=== PATIENT | female | born 1965 | race African-American/Black ===

== ENCOUNTER → 2016-10-16 | Outpatient (CLI) | payer OTHER ==
[~2016-10-16] MED LIST: ALEV220T26 PO; ASPI81TA85 PO; BACL10TA2 PO; INSULADS SC; INVO300T PO; LIPI10TA PO; LISI-542 PO; ZOFR20TA PO
--- NOTE | 2016-10-16 12:59 | REPMRS ---
Patient History The patient states she has not had a clinical breast exam in over a year. No known family history of cancer. Benign radio exam breast specimen of the right breast, October 08, 2015. Benign stereotatic loc for ea lesion of the left breast, October 08, 2015. Took hormonal contraceptives. Digital Mammo Screening Bilat: October 16, 2016 - Exam #: [id number] Bilateral CC and MLO view(s) were taken. Technologist: Justina Chambers, Technologist Prior study comparison: September 11, 2015, left breast digital mammo diagnostic unilateral performed at [facility]. September 03, 2015, digital bilateral screening mammo, performed at [facility]. FINDINGS: The breast tissue is heterogeneously dense. This may lower the sensitivity of mammography. There has been no change in the appearance of the mammogram from the prior studies. There is a moderate amount of residual fibroglandular tissue which is fairly symmetric. There is no interval development of dominant mass, areas of architectural distortion, or clustered microcalcification typical of malignancy. ASSESSMENT: BI-RADS/ACR category 1 mammogram. Negative. Recommendation Routine screening mammogram in 1 year (for women over age 40). This mammogram was interpreted with the aid of an FDA-approved computer-aided dectection system. Electronically Signed By: Justin Ramirez MD 10/16/16 1675
== END ==
LOC: M RAD 11:59
PROVIDERS: ATTEND Family Medicine
DX: Z12.31 Encounter for screening mammogram for malignant neoplasm of breast (principal)

== ENCOUNTER → 2017-05-11 | Outpatient (REF) | payer OTHER ==
[2017-05-11 12:56] LABS: ALBUMIN 3.8 GM/DL (3.2-5.2); ALBUMIN/GLOBULIN RATIO 1.06 (1.00-1.93); ALKALINE PHOSPHATASE 95 U/L (45-117); ALT/SGPT 21 U/L (12-78); ANION GAP 11 MEQ/L (8-16); AST/SGOT 15 U/L (7-37); BILIRUBIN,TOTAL 0.6 MG/DL (0.2-1.0); BLOOD UREA NITROGEN 12 MG/DL (7-18); CARBON DIOXIDE LEVEL 26 MEQ/L (21-32); CHLORIDE LEVEL 107 MEQ/L (98-107); CHOLESTEROL LEVEL 145 MG/DL (<200); CHOLESTEROL RISK RATIO 3.085 (<5); CREATININE FOR GFR 0.77 MG/DL (0.55-1.30); GLOMERULAR FILTRATION RATE > 60.0 (>51); GLUCOSE, FASTING 107 MG/DL (70-100); HDL CHOLESTEROL 47 MG/DL (>40); LDL CHOLESTEROL 83.6 MG/DL (<100); NON-HDL-C 98 MG/DL; POTASSIUM SERUM 4.2 MEQ/L (3.5-5.1); SODIUM LEVEL 144 MEQ/L (136-145); TOTAL PROTEIN 7.4 GM/DL (6.4-8.2); TRIGLYCERIDES LEVEL 72 MG/DL (<150)
[2017-05-11 13:08] LABS: CREATININE, URINE 93.8 MG/DL; CREATININE,RANDOM URINE 93.8 MG/DL; MALB URINE SIEMENS 10.1 MG/L; MAU/CREAT RATIO 10.7 MCG/MG (0.0-30.0)
== END ==
LOC: M LABDRAW1 10:46
DX: E11.9 Type 2 diabetes mellitus without complications (principal); E04.0 Nontoxic diffuse goiter

== ENCOUNTER → 2017-11-02 | Outpatient (CLI) | payer OTHER | LOC: M RAD 09:28 | DX: Z12.31 Encounter for screening mammogram for malignant neoplasm of breast (principal) ==

== ENCOUNTER → 2018-08-29 | Outpatient (REF) | payer OTHER ==
[~2018-08-29] MED LIST changes: -ZOFR20TA PO; +ZOFR4TAB16 PO
[2018-08-29 16:58] LABS: BLOOD UREA NITROGEN 23 MG/DL (7-18); CARBON DIOXIDE LEVEL 26 MEQ/L (21-32); CHLORIDE LEVEL 106 MEQ/L (98-107); CHOLESTEROL LEVEL 172 MG/DL (<200); CHOLESTEROL RISK RATIO 3.307 (<5); CREATININE FOR GFR 0.96 MG/DL (0.55-1.30); GLOMERULAR FILTRATION RATE > 60.0 (>51); GLUCOSE, FASTING 154 MG/DL (70-100); HDL CHOLESTEROL 52 MG/DL (>40); LDL CHOLESTEROL 100 MG/DL (<100); NON-HDL-C 120 MG/DL; SODIUM LEVEL 141 MEQ/L (136-145); TRIGLYCERIDES LEVEL 99 MG/DL (<150)
[2018-08-29 17:13] LABS: CREATININE, URINE 70.3 MG/DL; MALB URINE SIEMENS 9.9 MG/L
== END ==
LOC: M LABDRAW1 15:26
PROVIDERS: ATTEND Nurse Practitioner Family
DX: E11.9 Type 2 diabetes mellitus without complications (principal); E78.00 Pure hypercholesterolemia, unspecified; E04.0 Nontoxic diffuse goiter

== ENCOUNTER → 2018-11-04 | Outpatient (CLI) | payer OTHER ==
--- NOTE | 2018-11-04 11:46 | REPMRS ---
Patient History The patient states she has not had a clinical breast exam in over a year. No known family history of cancer. Benign radio exam breast specimen of the right breast, October 08, 2015. Benign stereotatic loc for ea lesion of the left breast, October 08, 2015. Took hormonal contraceptives. Digital Mammo Screening Bilat: November 04, 2018 - Exam #: [id number] Bilateral CC and MLO view(s) were taken. Technologist: Annabelle Rocha, Technologist Prior study comparison: November 02, 2017, bilateral digital mammo screening bilat performed at [facility]. October 16, 2016, bilateral digital mammo screening bilat performed at [facility]. September 03, 2015, digital bilateral screening mammo, performed at [facility]. FINDINGS: There are scattered fibroglandular densities. There is a needle biopsy marker clip again noted in the upper outer quadrant on the left. There has been no change in the appearance of the mammogram from the prior studies. There is a mild amount of scattered fibroglandular density which is fairly symmetric. There is no interval development of dominant mass, architectural distortion, or grouped microcalcification suggestive of malignancy. Assessment: BI-RADS/ACR category 2 mammogram. Benign Findings. Recommendation Routine screening mammogram of both breasts in 1 year (for women over age 40). This patient's Lifetime Breast Cancer Risk is estimated at 9.7 %. This mammogram was interpreted with the aid of an FDA-approved computer-aided dectection system. Electronically Signed By: Jarred Montiel MD 11/04/18 [id number]
== END ==
LOC: M RAD 10:20
PROVIDERS: ATTEND Family Medicine
DX: Z12.31 Encounter for screening mammogram for malignant neoplasm of breast (principal)

== ENCOUNTER 2019-02-27 01:21 | Emergency (ER) | payer OTHER ==
[~2019-02-27] VITALS: Ht 170.2 cm; Wt 72.3 kg
[2019-02-27] MEDS ORDERED: DEXTROMETHORPHAN 60MG/10ML SUSP 90ML BTL(DELSYM) PO PRN (02:00)
[2019-02-27] MEDS ORDERED: NS 1,000 ML IV ONE (02:00)
[2019-02-27] MEDS ORDERED: MORPHINE 2 MG/ML 1ML VIAL (J2270) IV ONE (02:00)
[2019-02-27 02:47] LABS: INFLUENZA A AMPLIFICATION NEGATIVE (NEGATIVE); INFLUENZA B AMPLIFICATION NEGATIVE (NEGATIVE)
[2019-02-27 03:15] LABS: HEMATOCRIT 44.5 % (36.0-47.0); HEMOGLOBIN 13.9 g/dl (12.0-15.5); MEAN CORPUSCULAR HEMOGLOBIN 25.5 pg (27.0-33.0); MEAN CORPUSCULAR HGB CONC 31.2 g/dl (32.0-36.5); MEAN CORPUSCULAR VOLUME 81.7 fl (80.0-96.0); PLATELET COUNT, AUTOMATED 297 10^3/uL (150-450); RED BLOOD COUNT 5.45 10^6/uL (4.00-5.40); WHITE BLOOD COUNT 12.5 10^3/uL (4.0-10.0)
[2019-02-27 03:28] LABS: BLOOD UREA NITROGEN 16 MG/DL (7-18); CALCIUM LEVEL 8.9 MG/DL (8.5-10.1); CARBON DIOXIDE LEVEL 24 MEQ/L (21-32); CHLORIDE LEVEL 109 MEQ/L (98-107); CK-MB VALUE MASS 2.3 NG/ML (<3.6); CPK CREATINE PHOSPHOKINASE 226 U/L (26-192); CREATININE FOR GFR 1.24 MG/DL (0.55-1.30); GLOMERULAR FILTRATION RATE 58.8 (>51); GLUCOSE, FASTING 182 MG/DL (70-100); MB/CK RELATIVE INDEX 1.02 (< OR =4); SODIUM LEVEL 143 MEQ/L (136-145); TROPONIN I < 0.02 NG/ML (< 0.10)
[2019-02-27] MEDS ORDERED: NS 500 ML IV ONE (03:45)
[2019-02-27] MEDS ORDERED: ISOVUE-370 76% 100ML VIAL (Q9967) As Ordered ONE (04:18)
--- NOTE | 2019-02-27 04:59 | REPVR ---
PROCEDURE INFORMATION: Exam: CT Angiography Chest With Contrast Exam date and time: 02/27/2019 4:24 AM Age: 53 years old Clinical history: Chest pain. TECHNIQUE: Imaging protocol: Computed tomographic angiography of the chest with intravenous contrast. 3D rendering: MIP reconstructed images were created and reviewed. Radiation optimization: All CT scans at this facility use at least one of these dose optimization techniques: automated exposure control; mA and/or kV adjustment per patient size (includes targeted exams where dose is matched to clinical indication); or iterative reconstruction. Contrast material: ISOVUE 370; Contrast volume: 75 ml; Contrast route: IV; COMPARISON: CR PORTABLE CHEST X-RAY 02/27/2019 1:52 AM FINDINGS: Pulmonary arteries: No pulmonary embolism is identified. 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 The brachiocephalic artery, imaged proximal portion of the left common carotid artery, and left subclavian artery are patent. Aorta: There is no thoracic aortic aneurysm, pseudoaneurysm, intramural hematoma, penetrating atherosclerotic ulcer, or dissection. There are mild atherosclerotic calcifications. Thyroid: There is a punctate calcification in the left lobe of the thyroid gland. The thyroid gland was not fully imaged. Lungs: There is mild atelectasis in the right middle lobe, right lower lobe, and lingula. The lungs are otherwise clear. There is no lung consolidation, pulmonary infarct, or mass. No emphysematous changes or interstitial lung disease is noted. The major airways are patent. Pleural space: Unremarkable. No pneumothorax. No pleural effusion. Heart: No cardiomegaly. There is a trace amount of fluid in the pericardial sac. The ratio of the diameter of the right ventricle to the diameter of the left ventricle measures less than 1, which is within normal limits and there is no evidence for a right ventricular strain. Mediastinum: No mediastinal hemorrhage or pneumomediastinum is noted. There is fluid in the esophagus, which can be seen with gastroesophageal reflux. Gallbladder: There has been a cholecystectomy and there are surgical clips in gallbladder fossa. Lymph nodes: Normal. No enlarged lymph nodes. Bones/joints: The imaged bony structures are intact. There is no suspicious osteolytic or osteoblastic lesion. There are endplate spurs in the thoracic spine. Soft tissues: Unremarkable. IMPRESSION: 1. No pulmonary embolism. 2. No thoracic aortic aneurysm, pseudoaneurysm, intramural hematoma, penetrating atherosclerotic ulcer, or dissection. 3. Evidence for gastroesophageal reflux. Electronically signed by: Casa Salcedo On 02/27/2019 04:59:32 AM
[2019-02-27 05:43] VITALS: BP 136/77
--- NOTE | 2019-02-27 08:08 | REP ---
Portable chest x-ray: Single view. History: Cough. Findings: Monitoring electrodes overlie the chest. There are clips in right upper quadrant. The lungs are well inflated and clear. Heart size is normal. Pulmonary vasculature is not increased. There is orthopedic anchor in the right humeral head. No other bony abnormality. Impression: No acute disease. Electronically Signed by Wayne Montiel MD 02/27/2019 07:59 A
--- NOTE | 2019-02-27 16:37 | ED PDOC ---
Post-Departure Follow-Up giovany hogue faxed formal report of cta chest for fu Laury Pickett MD Feb 27, 2019 16:37
--- NOTE | 2019-02-27 16:47 | ECGEPIP ---
[facility] - ED Test Date: 2019-02-27 Pat Name: MICHAEL ZAMUDIO Department: Room: - Gender: Female Services Engineer: : 1965 Requested By: JESSY BENNETT Order Number: [id number] Reading MD: Isabel Stewart Measurements Intervals [place] Rate: 98 P: 48 NH: 176 QRS: 21 QRSD: 86 T: 41 QT: 344 QTc: 440 Interpretive Statements SINUS RHYTHM NSTTW abnormalities NO PRIOR Electronically Signed on 02-27-2019 16:46:59 EST by Isabel Stewart
== END 2019-02-27 05:50 | disposition home or self-care (01) ==
LOC: M ED 01:21
DX: B34.9 Viral infection, unspecified (principal); R05 Cough; R07.0 Pain in throat; H92.09 Otalgia, unspecified ear; E11.9 Type 2 diabetes mellitus without complications; I10 Essential (primary) hypertension; Z79.82 Long term (current) use of aspirin; Z79.4 Long term (current) use of insulin; Z79.899 Other long term (current) drug therapy
CPT/HCPCS: 71045; 71275; 80048; 82550; 82553; 84484; 85027; 87502; 93005; 93041; 94760; 96374; 99284; J2270; Q9967

== ENCOUNTER → 2019-04-11 | Outpatient (REF) | payer OTHER ==
[2019-04-11 12:30] LABS: ALBUMIN 3.9 GM/DL (3.2-5.2); ALT/SGPT 46 U/L (12-78); BILIRUBIN,TOTAL 0.6 MG/DL (0.2-1.0); BLOOD UREA NITROGEN 19 MG/DL (7-18); CALCIUM LEVEL 9.3 MG/DL (8.5-10.1); CARBON DIOXIDE LEVEL 28 MEQ/L (21-32); CHLORIDE LEVEL 106 MEQ/L (98-107); CHOLESTEROL LEVEL 153 MG/DL (<200); CREATININE FOR GFR 0.73 MG/DL (0.55-1.30); GLOMERULAR FILTRATION RATE > 60.0 (>51); GLUCOSE, FASTING 183 MG/DL (70-100); HDL CHOLESTEROL 51 MG/DL (>40); LDL CHOLESTEROL 83 MG/DL (<100); NON-HDL-C 102 MG/DL; POTASSIUM SERUM 4.1 MEQ/L (3.5-5.1); SODIUM LEVEL 140 MEQ/L (136-145); TRIGLYCERIDES LEVEL 95 MG/DL (<150)
== END ==
LOC: M LABDRAW1 11:45
PROVIDERS: ATTEND Nurse Practitioner Family
DX: E11.9 Type 2 diabetes mellitus without complications (principal); E78.00 Pure hypercholesterolemia, unspecified; E04.0 Nontoxic diffuse goiter

== ENCOUNTER 2019-05-02 06:12 | Emergency (ER) | payer OTHER ==
[~2019-05-02] VITALS: Ht 170.2 cm; Wt 65.0 kg
[2019-05-02] MEDS ORDERED: TRUL0.5I (06:29)
[2019-05-02 07:12] LABS: BASO % 0.5 % (0.0-1.0); EOS % 0.4 % (0.0-3.0); HEMATOCRIT 50.2 % (36.0-47.0); HEMOGLOBIN 15.9 g/dl (12.0-15.5); LYMPH # 1.3 10^3/uL (1.5-5.0); LYMPH % 16.7 % (24.0-44.0); MEAN CORPUSCULAR HEMOGLOBIN 25.6 pg (27.0-33.0); MEAN CORPUSCULAR HGB CONC 31.7 g/dl (32.0-36.5); MEAN CORPUSCULAR VOLUME 80.8 fl (80.0-96.0); MONO # 0.8 10^3/uL (0.0-0.8); MONO % 9.9 % (0.0-5.0); NEUTROPHILS # 5.5 10^3/uL (1.5-8.5); NEUTROPHILS % 72.2 % (36.0-66.0); RED BLOOD COUNT 6.21 10^6/uL (4.00-5.40); WHITE BLOOD COUNT 7.6 10^3/uL (4.0-10.0)
[2019-05-02] MEDS ORDERED: NS 1,000 ML IV ONE ×2 (07:30→10:00)
[2019-05-02 07:41] LABS: BILIRUBIN,DIRECT 0.3 MG/DL (0.0-0.2); BILIRUBIN,TOTAL 1.2 MG/DL (0.2-1.0); TOTAL PROTEIN 7.5 GM/DL (6.4-8.2)
[2019-05-02 08:06] LABS: VENOUS BASE EXCESS 0.5 (-2.0-2.0); VENOUS HCO3 22.6 MEQ/L (23.0-27.0); VENOUS O2 SATURATION 85.2 % (60.0-80.0); VENOUS PARTIAL PRESSURE CO2 30.4 mmHg (38.0-50.0); VENOUS PARTIAL PRESSURE O2 48.5 mmHg (30.0-50.0); VENOUS PH 7.489 UNITS (7.330-7.430); VENOUS STANDARD HCO3 24.5 MEQ/L; VENOUS TOTAL CO2 23.5 MEQ/L (24.0-28.0)
--- NOTE | 2019-05-02 08:08 | ECGEPIP ---
[facility] - ED Test Date: 2019-05-02 Pat Name: MICAHEL ZAMUDIO Department: Room: - Gender: Female Asset Specialist: maddison : 1965 Requested By: ROGELIO Ernst Order Number: [id number] Reading MD: Isabel Stewart Measurements Intervals [place] Rate: 106 P: 51 ME: 152 QRS: 35 QRSD: 90 T: 45 QT: 331 QTc: 439 Interpretive Statements SINUS TACHYCARDIA POSSIBLE LEFT ATRIAL ENLARGEMENT ABNORMAL RHYTHM ECG NSTTW abnormalities SIMILAR 02/27/19 Electronically Signed on 05-02-2019 8:08:15 EST by sIabel Stewart
--- NOTE | 2019-05-02 08:16 | REP ---
Clinical: Diabetic ketoacidosis . Comparison: 02/27/2019 . Findings: The mediastinum and cardiac silhouette are stable and within normal limits for portable technique. The lung lópez are clear without acute consolidation, effusion, or pneumothorax. Skeletal structures are intact. Impression: No acute cardiopulmonary process appreciated. Electronically Signed by Rambo Carr MD 05/02/2019 08:07 A
[2019-05-02 08:29] LABS: HEMOGLOBIN A1c 7.4 %
[2019-05-02 08:44] LABS: BLOOD UREA NITROGEN 16 MG/DL (7-18); CALCIUM LEVEL 10.9 MG/DL (8.5-10.1); CARBON DIOXIDE LEVEL 23 MEQ/L (21-32); CHLORIDE LEVEL 106 MEQ/L (98-107); CK-MB VALUE MASS < 1.0 NG/ML (<3.6); CPK CREATINE PHOSPHOKINASE 80 U/L (26-192); CREATININE FOR GFR 0.69 MG/DL (0.55-1.30); ETHYL ALCOHOL (ETHANOL) < 0.003 % (0.000-0.010); GLOMERULAR FILTRATION RATE > 60.0 (>51); GLUCOSE, FASTING 137 MG/DL (70-100); MAGNESIUM LEVEL 2.1 MG/DL (1.8-2.4); MB/CK RELATIVE INDEX 1.25 (< OR =4); SODIUM LEVEL 141 MEQ/L (136-145); TROPONIN I < 0.02 NG/ML (< 0.10)
[2019-05-02] MEDS ORDERED: ISOVUE-370 76% 100ML VIAL (Q9967) As Ordered ONE (08:49)
[2019-05-02 09:15] LABS: OSMOLALITY SERUM 299 MOSM/KG (275-295)
--- NOTE | 2019-05-02 09:24 | REP ---
Clinical: Acute abdominal pain. Technique: Axial contrast enhanced images from the lung bases to the pubic symphysis using 100 ml Isovue 370 intravenous contrast material with coronal and sagittal re-formations. Comparison: None. Findings: Lung bases are clear. Visualized heart and pericardium normal. Hepatic steatosis noted without focal hepatic lesion. Spleen, pancreas, bilateral adrenal glands and kidneys are normal. Evidence of prior cholecystectomy. The enteric system demonstrates mild/moderate fecal stasis without obstruction or acute inflammatory process. Normal terminal ileum and appendix are identified in the right lower quadrant. Pelvis demonstrates normal bladder and age-appropriate uterus/adnexa. No ascites. No free air. No adenopathy. Abdominal aorta and vasculature normal. Musculoskeletal structures are intact. Impression: 1. Hepatic steatosis. 2. Moderate fecal stasis suggested. 3. No further acute abdominopelvic pathology appreciated. Electronically Signed by Rambo Carr MD 05/02/2019 09:15 A
[2019-05-02 09:54] LABS: AMPHETAMINES LEVEL URINE NEGATIVE (NEGATIVE); BARBITURATES URINE NEGATIVE (NEGATIVE); BENZODIAZEPINES URINE NEGATIVE (NEGATIVE); CANNABINOIDS URINE NEGATIVE (NEGATIVE); COCAINE METABOLITE URINE NEGATIVE (NEGATIVE); METHADONE URINE NEGATIVE (NEGATIVE); OPIATES URINE NEGATIVE (NEGATIVE); PHENCYCLIDINE URINE NEGATIVE (NEGATIVE)
[2019-05-02] MEDS ORDERED: ONDANSETRON 4MG/2ML VIAL (J2405) As Ordered ONE (09:55)
[2019-05-02] MEDS ORDERED: ONDANSETRON 4MG/2ML VIAL (J2405) IV ONE (10:00)
[2019-05-02 10:20] LABS: ACETONE/KETONE 28.08 MG/DL (<2.81)
[2019-05-02] MEDS ORDERED: ONDA4TAB6 PO (12:37)
[2019-05-02] MEDS ORDERED: GOLYLQ PO (12:37)
[2019-05-02 12:59] VITALS: BP 126/76
== END 2019-05-02 13:05 | disposition home or self-care (01) ==
LOC: M ED 06:12
DX: K59.00 Constipation, unspecified (principal); R10.9 Unspecified abdominal pain; R00.0 Tachycardia, unspecified; R94.31 Abnormal electrocardiogram [ECG] [EKG]; E11.9 Type 2 diabetes mellitus without complications; I11.0 Hypertensive heart disease with heart failure; K76.0 Fatty (change of) liver, not elsewhere classified; Z79.82 Long term (current) use of aspirin; Z79.4 Long term (current) use of insulin; Z79.899 Other long term (current) drug therapy
CPT/HCPCS: 36415; 71045; 74177; 80048; 80076; 80307; 81001; 82010; 82550; 82553; 82803; 83036; 83605; 83690; 83735; 83930; 84484; 85025; 87086; 93005; 93041; 96360; 96361; 96374; 99285; G0480; J2405; Q9967

== ENCOUNTER → 2019-06-08 | Outpatient (REF) | payer OTHER ==
[~2019-06-08] MED LIST changes: +GOLYLQ PO; +ONDA4TAB6 PO; +TRUL0.5I
[2019-06-08 16:40] LABS: CREATININE, URINE 98.6 MG/DL; MALB URINE SIEMENS 9.9 MG/L
== END ==
LOC: M LAB REF 15:37
PROVIDERS: ATTEND Nurse Practitioner Family
DX: E11.9 Type 2 diabetes mellitus without complications (principal)

== ENCOUNTER → 2019-11-17 | Outpatient (CLI) | payer OTHER ==
[~2019-11-17] MED LIST changes: -ASPI81TA85 PO; +ASPI81TA86 PO
--- NOTE | 2019-11-17 12:40 | REPMRS ---
Patient History The patient states she has not had a clinical breast exam in over a year. No known family history of cancer. Benign radio exam breast specimen of the right breast, October 08, 2015. Benign stereotatic loc for ea lesion of the left breast, October 08, 2015. Took hormonal contraceptives. Digital Woman Screen Mammo: November 17, 2019 - Exam #: [id number] Bilateral CC and MLO view(s) were taken. Technologist: Justina Chambers, Technologist Prior study comparison: November 04, 2018, bilateral digital mammo screening bilat, performed at [facility]. November 02, 2017, bilateral digital mammo screening bilat, performed at [facility]. FINDINGS: There are scattered fibroglandular densities. The Volpara volumetric breast density category is: B. There is a needle biopsy marker clip in the left breast. There is a moderate amount of residual fibroglandular tissue which is fairly symmetric. There is no interval development of dominant mass, architectural distortion, or grouped microcalcification typical of malignancy. There has been no change in the appearance of the mammogram from the prior studies. 3-D tomosynthesis shows no additional findings. Assessment: BI-RADS/ACR category 2 mammogram. Benign Findings. Recommendation Routine screening mammogram of both breasts in 1 year (for women over age 40). This patient's Lifetime Breast Cancer RIsk is estimated at 9.5 %. This mammogram was interpreted with the aid of an FDA-approved computer-aided dectection system. Electronically Signed By: Jarred Montiel MD 11/17/19 [id number]
== END ==
LOC: M WHC 11:34
PROVIDERS: ATTEND Family Medicine
DX: Z12.31 Encounter for screening mammogram for malignant neoplasm of breast (principal); Z86.018 Personal history of other benign neoplasm; Z92.0 Personal history of contraception; Z97.8 Presence of other specified devices

== ENCOUNTER → 2020-02-28 | Outpatient (CLI) | payer OTHER | LOC: M PLALAB 10:00 | PROVIDERS: ATTEND Nurse Practitioner Family | DX: E78.00 Pure hypercholesterolemia, unspecified (principal); E04.0 Nontoxic diffuse goiter ==

== ENCOUNTER → 2020-03-29 | Outpatient (CLI) | payer OTHER ==
[2020-03-29 14:09] LABS: ALBUMIN 3.9 GM/DL (3.2-5.2); ALT/SGPT 27 U/L (12-78); BILIRUBIN,TOTAL 0.5 MG/DL (0.2-1.0); BLOOD UREA NITROGEN 14 MG/DL (7-18); CALCIUM LEVEL 9.7 MG/DL (8.5-10.1); CARBON DIOXIDE LEVEL 28 MEQ/L (21-32); CHLORIDE LEVEL 107 MEQ/L (98-107); CHOLESTEROL LEVEL 138 MG/DL (<200); CHOLESTEROL RISK RATIO 2.653 (<5); CREATININE FOR GFR 0.74 MG/DL (0.55-1.30); FREE T4 1.15 NG/DL (0.76-1.46); GLOMERULAR FILTRATION RATE > 60.0 (>51); GLUCOSE, FASTING 165 MG/DL (70-100); HDL CHOLESTEROL 52 MG/DL (>40); LDL CHOLESTEROL 73 MG/DL (<100); NON-HDL-C 86 MG/DL; POTASSIUM SERUM 4.3 MEQ/L (3.5-5.1); SODIUM LEVEL 141 MEQ/L (136-145); THYROID STIMULATING HORMONE 0.847 uIU/ML (0.358-3.740); TOTAL PROTEIN 7.1 GM/DL (6.4-8.2); TRIGLYCERIDES LEVEL 65 MG/DL (<150)
== END ==
LOC: M PLALAB 10:38
PROVIDERS: ATTEND Nurse Practitioner Family
DX: E78.00 Pure hypercholesterolemia, unspecified (principal); E04.0 Nontoxic diffuse goiter

== ENCOUNTER → 2020-12-04 | Outpatient (CLI) | payer OTHER ==
[~2020-12-04] MED LIST changes: -LISI-542 PO; +LISI-898 PO
--- NOTE | 2020-12-04 13:45 | REPMRS ---
Patient History The patient states she has not had a clinical breast exam in over a year. No known family history of cancer. Benign radio exam breast specimen of the right breast, October 08, 2015. Benign stereotatic loc for ea lesion of the left breast, October 08, 2015. Took hormonal contraceptives. No breast complaints today Patient signed the MRS sheet 1st covid vaccine 04/30/20-left arm-Pfizer 2nd covid vaccine 05/21/20-not sure which arm Priors on PACS Patient Identification Verified Digital Woman Screen Mammo: December 04, 2020 - Exam #: [id number] Bilateral CC and MLO view(s) were taken. Technologist: Annabelle Rocha, Technologist Prior study comparison: November 17, 2019, bilateral digital woman screen mammo performed at [facility]. November 04, 2018, bilateral digital mammo screening bilat, performed at [facility]. FINDINGS: There are scattered fibroglandular densities. Screening. Digital screening (2D) mammography was performed bilaterally in the CC and MLO projections. Additionally, breast tomosynthesis (3D mammography) was performed bilaterally in the CC and MLO projections. Todays exam was compared to the prior exam/exams. By history, the patient has no complaints of a palpable breast abnormality or other significant breast complaints. The breasts are unchanged in size and shape. Once again, stable benign appearing calcifications are seen.There are no bradley-soft tissue densities or spiculated masses. There is no internal architectural distortion. There are no suspicious bradley-calcific clusters. Skin thickening or nipple retraction is not present. IMPRESSION: BI-RADS Category 2- Benign Findings. There is no evidence of malignant alteration of the breasts. Followup examination recommended in one year. The Volpara volumetric breast density category is B, there are scattered areas of fibroglandular densities. This mammogram was read with the assistance of [employer],an FDA approved computer aided detection system for mammography. The lifetime Tyrer-Cuzick score is 9.3 % Negative x-ray reports should not delay surgical consultation if a dominant or clinically suspicious mass is present. Not all breast cancers can be identified by mammography. Therefore, we recommend that you continue to perform regular breast self-examination and physical examination and then promptly contact your physician of any concerns or changes. Adenosis and dense breasts may obscure an underlying neoplasm. Assessment: BI-RADS/ACR category 2 mammogram. Benign Findings. Recommendation Routine screening mammogram of both breasts in 1 year. Electronically Signed By: Jarred Aviles DO 12/04/20 1334
== END ==
LOC: M WHC 12:56
PROVIDERS: ATTEND Family Medicine
DX: Z12.31 Encounter for screening mammogram for malignant neoplasm of breast (principal)

== ENCOUNTER → 2021-04-11 | Outpatient (CLI) | payer OTHER ==
[~2021-04-11] MED LIST changes: -LISI-898 PO; +LISI5TAB11 PO
== END ==
LOC: M PLALAB 11:55
PROVIDERS: ATTEND Internal Medicine Endocrinology, Diabetes & Metabolism
DX: E78.00 Pure hypercholesterolemia, unspecified (principal)

== ENCOUNTER → 2021-10-21 | Outpatient (REF) | payer OTHER ==
[2021-10-21 17:57] LABS: CREATININE, URINE 65.3 MG/DL; MALB URINE SIEMENS 7.1 MG/L; MAU/CREAT RATIO 10.8 MCG/MG (0.0-30.0)
== END ==
LOC: M LAB REF 16:51
PROVIDERS: ATTEND Nurse Practitioner Family
DX: E11.9 Type 2 diabetes mellitus without complications (principal)

== ENCOUNTER → 2021-12-18 | Outpatient (CLI) | payer OTHER | LOC: M WHC 14:54 | PROVIDERS: ATTEND Family Medicine | DX: Z12.31 Encounter for screening mammogram for malignant neoplasm of breast (principal) ==

== ENCOUNTER → 2022-07-03 | Outpatient (CLI) | payer OTHER ==
[2022-07-03 14:46] LABS: HEMOGLOBIN 13.3 g/dl (12.0-15.5); MEAN CORPUSCULAR HEMOGLOBIN 24.3 pg (27.0-33.0); MEAN CORPUSCULAR HGB CONC 30.2 g/dl (32.0-36.5); MEAN CORPUSCULAR VOLUME 80.4 fl (80.0-96.0); PLATELET COUNT, AUTOMATED 304 10^3/uL (150-450); RED BLOOD COUNT 5.47 10^6/uL (4.00-5.40); WHITE BLOOD COUNT 6.1 10^3/uL (4.0-10.0)
[2022-07-03 15:17] LABS: ALBUMIN 3.5 G/DL (3.2-5.2); ALKALINE PHOSPHATASE 105 U/L (46-116); ALT/SGPT 13 U/L (7.0-40); AST/SGOT 9 U/L (<34); BILIRUBIN,TOTAL 0.7 MG/DL (0.3-1.2); BLOOD UREA NITROGEN 17 MG/DL (9-23); CALCIUM LEVEL 9.5 MG/DL (8.5-10.1); CARBON DIOXIDE LEVEL 28 MMOL/L (20-31); CHLORIDE LEVEL 104 MMOL/L (98-107); CHOLESTEROL LEVEL 289 MG/DL (<200); CHOLESTEROL RISK RATIO 5.38 (<5); CREATININE FOR GFR 0.74 MG/DL (0.55-1.30); GLOMERULAR FILTRATION RATE > 60.0 (>51); GLUCOSE, FASTING 238 MG/DL (60-100); HDL CHOLESTEROL 53.7 MG/DL (>40); LDL CHOLESTEROL 209.9 MG/DL (<100); NON-HDL-C 235.3 MG/DL; POTASSIUM SERUM 4.5 MMOL/L (3.5-5.1); SODIUM LEVEL 139 MMOL/L (136-145); TOTAL PROTEIN 6.6 G/DL (5.7-8.2); TRIGLYCERIDES LEVEL 127 MG/DL (<150)
[2022-07-03 15:20] LABS: THYROID STIMULATING HORMONE 0.855 uIU/ML (0.55-4.78)
== END ==
LOC: M PLALAB 09:52
PROVIDERS: ATTEND Nurse Practitioner Family
DX: E11.9 Type 2 diabetes mellitus without complications (principal); E04.0 Nontoxic diffuse goiter

== ENCOUNTER → 2022-10-21 | Outpatient (CLI) | payer OTHER | LOC: M RAD 15:57 | PROVIDERS: ATTEND Pain Medicine Interventional Pain Medicine | DX: M51.27 Other intervertebral disc displacement, lumbosacral region (principal); M54.16 Radiculopathy, lumbar region ==

== ENCOUNTER → 2022-12-22 | Outpatient (CLI) | payer OTHER | LOC: M WHC 09:17 | PROVIDERS: ATTEND Family Medicine | DX: Z12.31 Encounter for screening mammogram for malignant neoplasm of breast (principal) ==

== ENCOUNTER → 2023-01-01 | Outpatient (REF) | payer OTHER ==
[2023-01-01 16:14] LABS: CREATININE, URINE 53.7 MG/DL
[2023-01-01 16:16] LABS: MAU/CREAT RATIO 16.7 MCG/MG (0.0-30.0)
== END ==
LOC: M LAB REF 15:22
PROVIDERS: ATTEND Nurse Practitioner Family
DX: E11.9 Type 2 diabetes mellitus without complications (principal)

== ENCOUNTER → 2023-05-06 | Day surgery (SDC) | payer OTHER ==
[~2023-05-06] VITALS: Ht 170.2 cm; Wt 71.0 kg
[~2023-05-06] MED LIST changes: +ASPI-226 PO; +ATOR1TAB21 PO; +GABA-282 PO; +JANU100T PO; +JARD1TAB3 PO; +LANTINJ4 SC; +MEDR1TAB2 PO; +METF-838 PO; +PANT40TA29 PO
[2023-05-06] MEDS: NS 1,000 ML IV ONE (12:12)
== END | disposition home or self-care (01) ==
LOC: M OPP 10:53
PROVIDERS: ATTEND Internal Medicine Gastroenterology
DX: R10.13 Epigastric pain (principal); Z53.8 Procedure and treatment not carried out for other reasons

== ENCOUNTER → 2023-05-14 | Outpatient (CLI) | payer OTHER ==
[~2023-05-14] MED LIST changes: +ACET1TAB55 PO; +BUSP10TA PO; +[UNRECOGNIZED DRUG - OTHER] PO; +[UNRECOGNIZED DRUG - OTHER] PO
== END ==
LOC: M SLEEP 20:00
PROVIDERS: ATTEND Family Medicine
DX: G47.33 Obstructive sleep apnea (adult) (pediatric) (principal)

== ENCOUNTER 2023-05-18 07:05 | Day surgery (SDC) | payer OTHER ==
[~2023-05-18] VITALS: Ht 170.2 cm; Wt 71.0 kg
[2023-05-18] MEDS: NS 1,000 ML IV ONE (06:00)
[~2023-05-18 07:05] MED LIST changes: +LIDOCAINE 2% 100MG/5ML SDV (FOR ANES.) As Ordered ONE; +fentaNYL 100 MCG/2 ML INJECTION As Ordered ONE; +propofoL 200 MG/20 ML VIAL As Ordered ONE
[2023-05-18 08:36] VITALS: TEMP 98.6
[2023-05-18 08:54] VITALS: BP 137/73; O2SAT 100
== END 2023-05-18 08:50 | disposition home or self-care (01) ==
LOC: M OPP 07:05
PROVIDERS: ATTEND Internal Medicine Gastroenterology
DX: R10.13 Epigastric pain (principal); K29.70 Gastritis, unspecified, without bleeding; K21.9 Gastro-esophageal reflux disease without esophagitis; E11.9 Type 2 diabetes mellitus without complications; Z79.82 Long term (current) use of aspirin; Z79.899 Other long term (current) drug therapy; Z79.4 Long term (current) use of insulin; Z79.84 Long term (current) use of oral hypoglycemic drugs
CPT/HCPCS: 43239; 88305; J3010

== ENCOUNTER → 2023-08-26 | Outpatient (CLI) | payer OTHER ==
[~2023-08-26] MED LIST changes: -LIDOCAINE 2% 100MG/5ML SDV (FOR ANES.) As Ordered ONE; +ONDA-282 PO; -ONDA4TAB6 PO; -fentaNYL 100 MCG/2 ML INJECTION As Ordered ONE; -propofoL 200 MG/20 ML VIAL As Ordered ONE
[2023-08-27 10:08] LABS: C-PEPTIDE 2.14 ng/mL (0.80-3.85)
== END ==
LOC: M PLALAB 08:40
PROVIDERS: ATTEND Nurse Practitioner Family
DX: E11.9 Type 2 diabetes mellitus without complications (principal)

== ENCOUNTER → 2023-12-31 | Outpatient (CLI) | payer OTHER ==
[~2023-12-31] MED LIST changes: +GABA-1172 PO; -GABA-282 PO
== END ==
LOC: M WHC 14:42
PROVIDERS: ATTEND Student in an Organized Health Care Education/Training Program
DX: Z12.31 Encounter for screening mammogram for malignant neoplasm of breast (principal); R92.333 Mammographic heterogeneous density, bilateral breasts

== ENCOUNTER → 2024-01-31 | Outpatient (CLI) | payer OTHER | LOC: M PLAIMG 13:08 | PROVIDERS: ATTEND Pain Medicine Interventional Pain Medicine | DX: M25.552 Pain in left hip (principal); M25.551 Pain in right hip; M16.0 Bilateral primary osteoarthritis of hip ==

== ENCOUNTER → 2024-04-03 | Outpatient (CLI) | payer OTHER | LOC: M PLALAB 12:10 | PROVIDERS: ATTEND Nurse Practitioner Family | DX: R14.0 Abdominal distension (gaseous) (principal) ==

== ENCOUNTER → 2025-01-05 | Outpatient (CLI) | payer OTHER | LOC: M WHC 09:37 | PROVIDERS: ATTEND Internal Medicine | DX: Z12.31 Encounter for screening mammogram for malignant neoplasm of breast (principal); R92.333 Mammographic heterogeneous density, bilateral breasts ==

== ENCOUNTER → 2025-02-05 | Outpatient (CLI) | payer OTHER | LOC: M RAD 12:24 | PROVIDERS: ATTEND Registered Nurse | DX: M51.26 Other intervertebral disc displacement, lumbar region (principal) ==

== ENCOUNTER → 2025-02-27 | Outpatient (REF) | payer OTHER ==
[2025-02-27 16:02] LABS: APPEARANCE, URINE CLEAR (CLEAR); BACTERIA, URINE AUTO NEGATIVE (NEGATIVE); BILIRUBIN, URINE AUTO NEGATIVE (NEGATIVE); BLOOD, URINE BLOOD 1+ (NEGATIVE); GLUCOSE, URINE (UA) AUTO 3+ mg/dL (NEGATIVE); KETONE, URINE AUTO NEGATIVE (NEGATIVE); LEUKOCYTE ESTERASE, URINE AUTO NEGATIVE (NEGATIVE); MUCUS, URINE SMALL (NEGATIVE); NITRITE, URINE AUTO NEGATIVE (NEGATIVE); PROTEIN, URINE AUTO NEGATIVE (NEGATIVE); RBC, URINE AUTO 0 /HPF (0-3); SPECIFIC GRAVITY URINE AUTO 1.038 (1.002-1.035); SQUAMOUS EPITHELIAL CELL UR AU 0 /HPF (0-6); UROBILINOGEN, URINE AUTO 0.2 mg/dL (0.0-2.0); WBC, URINE AUTO 0 /HPF (0-3)
[2025-02-27 16:03] LABS: BASO # 0.0 10^3/uL (0.0-0.2); BASO % 0.4 % (0.0-1.0); EOS # 0.1 10^3/uL (0.0-0.5); EOS % 0.8 % (0.0-3.0); LYMPH # 1.5 10^3/uL (1.5-5.0); LYMPH % 19.5 % (24.0-44.0); MONO # 0.6 10^3/uL (0.0-0.8); MONO % 7.3 % (2.0-8.0); NEUTROPHILS # 5.5 10^3/uL (1.5-8.5); NEUTROPHILS % 71.7 % (36.0-66.0); PLATELET COUNT, AUTOMATED 301 10^3/uL (150-450)
[2025-02-27 16:27] LABS: TOTAL PROTEIN,RANDOM URINE 9.1 MG/DL (0.0-14.0)
[2025-02-27 16:57] LABS: ALT/SGPT 14 U/L (7.0-40); AST/SGOT < 8 U/L (<34); C REACTIVE PROTEIN QUANTITATIV < 0.50 MG/DL (<1.0); CALCIUM LEVEL 8.9 MG/DL (8.5-10.1); CARBON DIOXIDE LEVEL 28 MMOL/L (20-31); CHLORIDE LEVEL 105 MMOL/L (98-107); COMPLEMENT C4 39.5 MG/DL (12-36); CREATININE FOR GFR 0.57 MG/DL (0.55-1.30); GLOMERULAR FILTRATION RATE > 90.0 (>51); POTASSIUM SERUM 3.5 MMOL/L (3.5-5.1); SODIUM LEVEL 140 MMOL/L (136-145); TOTAL 25(OH) VITAMIN D 35.2 NG/ML (20.0-100.0)
== END ==
LOC: M SFHCRHEU 09:31
PROVIDERS: ATTEND Internal Medicine Rheumatology
DX: H04.123 Dry eye syndrome of bilateral lacrimal glands (principal); R76.89 Other specified abnormal immunological findings in serum